=== PATIENT | male | born 1955 | race Caucasian/White ===

== ENCOUNTER 2022-04-07 11:36 | Emergency (ER) | payer MEDICARE, OTHER | END 2022-04-07 12:55 | disposition home or self-care (01) | LOC: ED 11:36 | DX: S61.211A Laceration without foreign body of left index finger without damage to nail, initial encounter (principal); W26.0XXA Contact with knife, initial encounter; Y93.89 Activity, other specified; Y92.89 Other specified places as the place of occurrence of the external cause; Y99.8 Other external cause status ==

== ENCOUNTER → 2022-04-15 | Outpatient (CLI) | payer MEDICARE, OTHER ==
[2022-04-15 14:47] LABS: CREATININE 2.08 mg/dL (0.70-1.30)
== END | disposition home or self-care (01) ==
LOC: LAB 13:48
PROVIDERS: ATTEND Internal Medicine Cardiovascular Disease
DX: I65.23 Occlusion and stenosis of bilateral carotid arteries (principal); E78.2 Mixed hyperlipidemia

== ENCOUNTER → 2022-04-16 | Outpatient (CLI) | payer MEDICARE, OTHER ==
[~2022-04-16] MED LIST: ASPIRIN ADULT L81 M1 PO; C-10001000 MG PO; CITALOPRAM20 MG PO; LASIX40 MG PO; LIPITOR40 MG PO; LISINOPRIL5 MG PO; METFORMIN HYD1000 MG PO; NIACIN500 M6 PO; OMEGA-31000 M1 PO
== END | disposition home or self-care (01) ==
LOC: CARD 04:25 → CT 10:00
PROVIDERS: ATTEND Internal Medicine Cardiovascular Disease
DX: I34.0 Nonrheumatic mitral (valve) insufficiency (principal); J43.8 Other emphysema; I65.23 Occlusion and stenosis of bilateral carotid arteries; E11.65 Type 2 diabetes mellitus with hyperglycemia

== ENCOUNTER → 2022-04-22 | Outpatient (CLI) | payer MEDICARE, OTHER | END | disposition home or self-care (01) | LOC: CARD 00:23 | PROVIDERS: ATTEND Internal Medicine Cardiovascular Disease | DX: R94.31 Abnormal electrocardiogram [ECG] [EKG] (principal); E11.65 Type 2 diabetes mellitus with hyperglycemia ==

== ENCOUNTER → 2022-09-10 | Outpatient (CLI) | payer MEDICARE, OTHER | END | disposition home or self-care (01) | LOC: MRI 02:14 | PROVIDERS: ATTEND Family Medicine | DX: I67.82 Cerebral ischemia (principal); G93.89 Other specified disorders of brain; Z86.73 Personal history of transient ischemic attack (TIA), and cerebral infarction without residual deficits; Z98.890 Other specified postprocedural states ==

== ENCOUNTER 2022-10-03 14:12 | Emergency (ER) | payer MEDICARE, OTHER ==
[~2022-10-03] VITALS: Ht 195.5 cm; Wt 74.8 kg
[2022-10-03] MEDS ORDERED: HYDROCODONE-AC1 EACH PO ×2 (20:14→20:15)
== END 2022-10-03 20:26 | disposition home or self-care (01) ==
LOC: ED 14:12
DX: S52.135A Nondisplaced fracture of neck of left radius, initial encounter for closed fracture (principal); Z90.89 Acquired absence of other organs; Z79.82 Long term (current) use of aspirin; Z79.899 Other long term (current) drug therapy; W18.39XA Other fall on same level, initial encounter; Y93.89 Activity, other specified; Y92.89 Other specified places as the place of occurrence of the external cause; Y99.8 Other external cause status

== ENCOUNTER → 2022-10-30 | Outpatient (CLI) | payer MEDICARE, OTHER ==
[~2022-10-30] MED LIST changes: +HYDROCODONE-AC1 EACH PO
== END | disposition home or self-care (01) ==
LOC: LAB 02:02 → CT 02:02
PROVIDERS: ATTEND Internal Medicine Critical Care Medicine
DX: Z01.812 Encounter for preprocedural laboratory examination (principal); J90 Pleural effusion, not elsewhere classified; J98.11 Atelectasis; J98.4 Other disorders of lung

== ENCOUNTER → 2022-11-10 | Day surgery (SDC) | payer MEDICARE, OTHER ==
[2022-11-10 09:00] VITALS: BP 135/71
[2022-11-10 11:37] LABS: BF LYMPHOCYTES 81 %; BF MACROPHAGES 12 %; BF NEUTROPHILS 7 %
== END | disposition home or self-care (01) ==
PROVIDERS: ATTEND Internal Medicine Critical Care Medicine
DX: J94.8 Other specified pleural conditions (principal); J44.9 Chronic obstructive pulmonary disease, unspecified; E11.9 Type 2 diabetes mellitus without complications; E78.00 Pure hypercholesterolemia, unspecified; I11.0 Hypertensive heart disease with heart failure; I50.9 Heart failure, unspecified; Z86.73 Personal history of transient ischemic attack (TIA), and cerebral infarction without residual deficits; Z87.891 Personal history of nicotine dependence; Z77.090 Contact with and (suspected) exposure to asbestos

== ENCOUNTER → 2022-11-28 | Outpatient (CLI) | payer MEDICARE, OTHER ==
[2022-11-28 12:53] LABS: BASO % 0.4 % (0.0-1.0); EOS # 0.1 10*3/uL (0.0-0.4); EOS % 1.7 % (1.0-4.0); HEMATOCRIT 35.3 % (42.0-52.0); LYMPH # 0.6 10*3/uL (1.3-4.4); MEAN CELL VOLUME 91.2 fl (80.0-94.0); MEAN CORPUSCULAR HGB 28.9 pg (27.0-31.0); MEAN CORPUSCULAR HGB CONC 31.7 g/dl (33.0-37.0); MEAN PLATELET VOLUME 9.4 fl (9.6-12.3); MONO # 0.2 10*3/uL (0.1-1.0); MONO % 4.6 % (3.0-9.0); NEUT # 4.2 10*3/uL (2.3-7.9); NEUT % 81.1 % (47.0-73.0); PLATELET COUNT AUTOMATED 111 10*3/uL (130-400); RED BLOOD COUNT 3.87 10*6/uL (4.50-5.90); RED CELL DISTRI WIDTH 15.5 % (0-14.5); WHITE BLOOD COUNT 5.2 10*3/uL (4.8-10.8)
[2022-11-28 13:28] LABS: DIGOXIN 1.18 ng/ml (0.8-2.0); FREE T4 0.98 ng/dl (0.89-1.76); THYROID STIM HORMONE (HS) 2.629 uIU/ml (0.550-4.780); TOTAL PROTEIN 6.7 gm/dL (6.0-8.0)
[2022-11-28 13:51] LABS: VITAMIN D, 25-HYDROXY 13.8 ng/mL (30-100)
== END | disposition short-term general hospital (02) ==
LOC: LAB 12:35
PROVIDERS: ATTEND Internal Medicine
DX: Z12.5 Encounter for screening for malignant neoplasm of prostate (principal); E11.9 Type 2 diabetes mellitus without complications; E78.2 Mixed hyperlipidemia; E03.9 Hypothyroidism, unspecified; E55.9 Vitamin D deficiency, unspecified

== ENCOUNTER → 2022-12-30 | Outpatient (CLI) | payer MEDICARE, OTHER | END | disposition home or self-care (01) | LOC: CARD 10:51 | PROVIDERS: ATTEND Internal Medicine | DX: I08.8 Other rheumatic multiple valve diseases (principal); J90 Pleural effusion, not elsewhere classified; R06.02 Shortness of breath ==

== ENCOUNTER 2023-04-04 03:59 | Emergency (ER) | payer MEDICARE, OTHER ==
[~2023-04-04] VITALS: Wt 90.7 kg
[2023-04-04 04:40] LABS: BASO % 0.6 % (0.0-1.0); EOS # 0.1 10*3/uL (0.0-0.4); EOS % 2.7 % (1.0-4.0); HEMATOCRIT 35.8 % (42.0-52.0); LYMPH # 0.6 10*3/uL (1.3-4.4); MEAN CORPUSCULAR HGB 29.4 pg (27.0-31.0); MEAN CORPUSCULAR HGB CONC 31.6 g/dl (33.0-37.0); MEAN PLATELET VOLUME 9.4 fl (9.6-12.3); MONO # 0.3 10*3/uL (0.1-1.0); MONO % 5.6 % (3.0-9.0); NEUT # 4.1 10*3/uL (2.3-7.9); NEUT % 78.7 % (47.0-73.0); PLATELET COUNT AUTOMATED 135 10*3/uL (130-400); RED BLOOD COUNT 3.85 10*6/uL (4.50-5.90); RED CELL DISTRI WIDTH 14.6 % (0-14.5); WHITE BLOOD COUNT 5.2 10*3/uL (4.8-10.8)
[2023-04-04 05:00] LABS: ACT PARTIAL THROMBO TIME 31.5 SECONDS (20.0-32.1)
[2023-04-04 05:07] LABS: ALKALINE PHOSPHATASE 65 U/L (46-116); BUN 31 mg/dl (9-23); CHLORIDE 106 mmol/L (98-107); ETHYL ALCOHOL 4.6 mg/dl (<3); LIPASE 47 U/L (12-53); POTASSIUM 4.2 mmol/L (3.4-5.1); SGPT/ALT 9 U/L (10-49); TOTAL PROTEIN 6.9 gm/dL (6.0-8.0)
[2023-04-04 08:10] LABS: BILIRUBIN Negative (Negative); BLOOD Negative (Negative); CLARITY Clear (Clear); COLOR Yellow (Yellow); GLUCOSE 1+ (Negative); KETONE Negative (Negative); LEUKO ESTERASE Negative (Negative); NITRITE Negative (Negative); PH 5.5 (4.5-8.0); UROBILINOGEN 0.2 E.U./dl (0.0-1.0)
[2023-04-04 08:17] LABS: URINE AMPHETAMINES Negative (1000ng/ml); URINE BARBITURATES Negative (200ng/ml); URINE BENZODIAZEPINES Negative (200ng/ml); URINE CANNABINOIDS (THC) Negative (50ng/ml); URINE COCAINE Negative (300ng/ml); URINE METHADONE Negative (300ng/ml); URINE OPIATES Negative (300ng/ml); URINE PHENCYCLIDINE Negative (25ng/ml)
[2023-04-04 08:35] LABS: EPITHELIAL CELLS 0-2
[2023-04-04 08:38] LABS: BACTERIA 1+; MUCOUS 1+
== END 2023-04-04 10:39 | disposition home or self-care (01) ==
LOC: ED 03:59
PROVIDERS: Internal Medicine
DX: F32.A Depression, unspecified (principal); I13.0 Hypertensive heart and chronic kidney disease with heart failure and stage 1 through stage 4 chronic kidney disease, or unspecified chronic kidney disease; I50.9 Heart failure, unspecified; N18.9 Chronic kidney disease, unspecified; Z98.890 Other specified postprocedural states; Z79.899 Other long term (current) drug therapy; E11.22 Type 2 diabetes mellitus with diabetic chronic kidney disease